=== PATIENT | female | born 1975 | race Caucasian/White ===

== ENCOUNTER 2021-09-27 13:35 | Emergency (ER) | payer OTHER ==
[~2021-09-27] VITALS: Ht 160 cm; Wt 74.8 kg
[2021-09-27] MEDS ORDERED: SYNTHROID75 MCG (13:44)
[2021-09-27] MEDS ORDERED: AVAPRO150 MG (13:45)
== END 2021-09-28 07:33 | disposition home or self-care (01) ==
LOC: ER 13:35 → EDBD 13:41 → ER 09-28 07:33
DX: N93.9 Abnormal uterine and vaginal bleeding, unspecified (principal); D64.9 Anemia, unspecified; Z20.822 Contact with and (suspected) exposure to COVID-19

== ENCOUNTER 2022-02-01 09:00 | Inpatient (IN) | payer OTHER ==
[~2022-02-01] VITALS: Ht 157.5 cm; Wt 81.6 kg
[~2022-02-01 09:00] MED LIST: AVAPRO150 MG; SYNTHROID75 MCG
[2022-02-01] MEDS ORDERED: LEVOTHYROXINE25 MCG PO (10:50)
[2022-02-01] MEDS ORDERED: ZYRTEC10 M3 PO (10:58)
[2022-02-08] MEDS ORDERED: VALSARTAN320 MG (09:42)
[2022-02-10] MEDS ORDERED: NAPR500T14 PO (09:55)
[2022-02-10] MEDS ORDERED: Tylenol #3 PO (09:55)
== END 2022-02-10 10:52 | disposition home or self-care (01) | DRG 743 ==
LOC: OB/GYN 02-07 05:37 → O/R 02-07 05:37 → OB/GYN 02-07 09:00
PROVIDERS: ADMIT Obstetrics & Gynecology; ATTEND Obstetrics & Gynecology
PROC: 0UT70ZZ Resection of Bilateral Fallopian Tubes, Open Approach (ICD-10-PCS; 2022-02-07)
PROC: 0UT20ZZ Resection of Bilateral Ovaries, Open Approach (ICD-10-PCS; 2022-02-07)
PROC: 0TJB8ZZ Inspection of Bladder, Via Natural or Artificial Opening Endoscopic (ICD-10-PCS; 2022-02-07)
PROC: 0UT90ZZ Resection of Uterus, Open Approach (ICD-10-PCS; principal; 2022-02-07 09:45)
DX: D25.1 Intramural leiomyoma of uterus (principal); D25.2 Subserosal leiomyoma of uterus; N72 Inflammatory disease of cervix uteri; Z20.822 Contact with and (suspected) exposure to COVID-19; N83.291 Other ovarian cyst, right side; N83.292 Other ovarian cyst, left side